=== PATIENT | male | born 2000 | race Caucasian/White ===

== ENCOUNTER 2018-01-31 09:26 | Inpatient (IN) | payer MEDICAID ==
[~2018-01-31] VITALS: Ht 170.2 cm; Wt 82.2 kg
[~2018-01-31 09:26] MED LIST: ARIP10TA8 PO; DIVA500T35 PO; LITH300C3 PO
[2018-01-31 10:17] VITALS: BP 119/70
[2018-01-31] MEDS ORDERED: LORazepam 2 MG TABLET PO PRN (10:45)
[2018-01-31] MEDS ORDERED: ZOLPIDEM TARTRATE 10 MG TABLET PO PRN (10:45)
[2018-01-31 15:38] VITALS: BP 122/78
[2018-01-31] MEDS ORDERED: PNEUMOCOCCAL VACCINE POLYVALENT 0.5 ML VIAL [PPSV23] IM ONE (16:15)
[2018-01-31 16:31] VITALS: BP 127/79
[2018-01-31] MEDS ORDERED: IBUPROFEN 400 MG TABLET PO PRN (19:45)
[2018-01-31] MEDS ORDERED: ACETAMINOPHEN 325 MG TABLET PO PRN (19:45)
[2018-01-31] MEDS: OLANZapine 7.5 MG TABLET PO SCH (20:15)
[2018-02-01 06:10] VITALS: BP 120/86
[2018-02-01 08:25] LABS: BASOPHILS % (AUTO) 0.7 % (0.0-2.0); EOSINOPHILS % (AUTO) 2.1 % (1.0-6.0); HEMOGLOBIN 14.7 g/dL (13.5-17.5); LYMPHOCYTES % (AUTO) 43.8 % (22.0-44.0); MEAN CORPUSCULAR HEMOGLOBIN 25.5 pg (26.0-34.0); MEAN CORPUSCULAR HGB CONC 33.4 G/dL (31.0-37.0); MEAN CORPUSCULAR VOLUME 76 fL (80-100); MONOCYTES # (AUTO) 0.6 K/uL (0.1-1.0); MONOCYTES % (AUTO) 8.4 % (2.0-9.0); NEUTROPHILS # (AUTO) 3.1 K/uL (1.8-7.7); PLATELET COUNT (AUTO) 194 K/uL (150-450); RED BLOOD CELL COUNT(AUTO) 5.77 MIL/uL (4.50-5.90); RED CELL DISTRIBUTION WIDTH 15.3 % (11.5-14.5)
[2018-02-01 08:42] VITALS: BP 113/69
[2018-02-01] MEDS ORDERED: ONDANSETRON HCL 4 MG TABLET PO PRN (08:45)
[2018-02-01] MEDS ORDERED: MAG HYDROX/AL HYDROX/SIMETH ES 30 ML SUSPENSION UDCUP PO PRN (08:45)
[2018-02-01] MEDS ORDERED: BACITRACIN 28.4 GM OINTMENT TP PRN (08:45)
[2018-02-01] MEDS ORDERED: IBUPROFEN 600 MG TABLET PO PRN (08:45)
[2018-02-01] MEDS ORDERED: PETROLATUM,WHITE 71 GM JELLY TP PRN (08:45)
[2018-02-01] MEDS ORDERED: MAGNESIUM HYDROXIDE SUSPENSION 30 ML UDCUP PO PRN (08:45)
[2018-02-01] MEDS ORDERED: LOPERAMIDE HCL 2 MG CAPSULE PO PRN (08:45)
[2018-02-01] MEDS ORDERED: CloNIDine HCL 0.1 MG TABLET PO PRN (08:45)
[2018-02-01] MEDS ORDERED: BENZOCAINE/MENTHOL LOZENGE MM PRN (08:45)
[2018-02-01 09:26] LABS: ALANINE AMINOTRANSFERASE 20 U/L (12-78); ALBUMIN 4.2 g/dL (3.4-5.0); ALKALINE PHOSPHATASE 198 U/L (46-116); ANION GAP 10 mmol/L (8-16); ASPARTATE AMINOTRANSFERASE 14 U/L (15-37); BILIRUBIN,TOTAL 0.5 mg/dL (0.1-1.0); CALCIUM, TOTAL 9.5 mg/dL (8.8-10.5); CARBON DIOXIDE 28 mmol/L (22-29); CHLORIDE 106 mmol/L (98-107); CREATININE 0.65 mg/dL (0.60-1.30); FREE T4 (FREE THYROXINE) 1.01 ng/dL (0.76-1.46); GLOMERULAR FILTR. RATE CALC > 60 mL/min (>60); GLUCOSE,RANDOM 91 mg/dL (70-110); POTASSIUM 4.5 mmol/L (3.5-5.1); SODIUM SERUM 144 mmol/L (136-145); THYROID STIMULATING HORMONE 1.35 uIU/mL (0.36-3.74); TOTAL PROTEIN, SERUM 6.7 g/dL (6.4-8.2); UREA NITROGEN, BLOOD 11 mg/dL (7-18)
[2018-02-01] MEDS: DIVALPROEX SODIUM 500 MG DR TABLET PO SCH ×2 (10:34→17:06)
[2018-02-01 16:42] VITALS: BP 108/60
[2018-02-01] MEDS: OLANZapine 7.5 MG TABLET PO SCH (21:03)
[2018-02-02 06:33] VITALS: BP 127/64
[2018-02-02 08:33] VITALS: BP 125/70
[2018-02-02] MEDS: DIVALPROEX SODIUM 500 MG DR TABLET PO SCH ×2 (09:42→16:11)
[2018-02-02 16:24] VITALS: BP 123/64
[2018-02-02] MEDS: OLANZapine 7.5 MG TABLET PO SCH (20:22)
[2018-02-03 06:42] VITALS: BP 107/64
[2018-02-03 08:18] VITALS: BP 120/90
[2018-02-03] MEDS: DIVALPROEX SODIUM 500 MG DR TABLET PO SCH (08:45)
[2018-02-03] MEDS ORDERED: OLAN7.5T2 PO (08:58)
== END 2018-02-03 13:25 | disposition home or self-care (01) | DRG 750 ==
LOC: B2S 11:18
PROVIDERS: ADMIT Psychiatry & Neurology Psychiatry; ATTEND Psychiatry & Neurology Psychiatry
DX: F25.9 Schizoaffective disorder, unspecified (principal); F31.9 Bipolar disorder, unspecified; G47.00 Insomnia, unspecified; J45.909 Unspecified asthma, uncomplicated; F12.90 Cannabis use, unspecified, uncomplicated; F19.10 Other psychoactive substance abuse, uncomplicated; Z79.899 Other long term (current) drug therapy
CPT/HCPCS: 84439; 84443